=== PATIENT | male | born 1960 | race Caucasian/White ===

== ENCOUNTER 2019-01-27 10:37 | Emergency (ER) | payer OTHER ==
[~2019-01-27] VITALS: Ht 193 cm; Wt 68.0 kg
[2019-01-27 13:26] LABS: Basophils # (auto) 0.1 uL; Basophils % (auto) 0.8 % (0.0-2.0); Eosinophils # (auto) 0.2 uL; Eosinophils % (auto) 2.2 % (0.0-7.0); Hematocrit 48.7 % (41.0-53.0); Hemoglobin 16.6 g/dL (13.5-17.5); Lymphocytes % (auto) 23.6 % (10.0-50.0); Mean Corpuscular Hemoglobin 30.5 pg (28.0-32.0); Mean Corpuscular Hgb Conc. 34.1 g/dL (32.0-36.0); Mean Corpuscular Volume 89.4 fL (80.0-100.0); Monocytes # (auto) 0.4 uL; Monocytes % (auto) 4.6 % (0.0-12.0); Neutrophils # (auto) 5.8 uL; Neutrophils % (auto) 68.8 % (37.0-80.0); Nucleated Red Blood Cells % 0.1 %; Platelet Count (auto) 213 10^3/uL (140-450); Red Blood Cells 5.44 10^6/uL (4.5-5.90); Red Cell Distribution Width 15.4 % (11.8-14.3); White Blood Cell 8.4 10^3/uL (4.4-10.8)
[2019-01-27 13:44] LABS: Albumin 3.4 g/dL (3.4-5.0); Calcium 9.1 mg/dL (8.5-10.1); Potassium 3.7 mmol/L (3.5-5.1)
[2019-01-27 13:47] LABS: BUN/Creatinine Ratio 13.8; Bilirubin, Total 0.4 mg/dL (0.2-1.0); Total Protein 7.9 g/dL (6.4-8.2)
[2019-01-27 13:54] VITALS: BP 132/85
[2019-01-27] MEDS ORDERED: HYDROmorphone HCL 2 MG TAB PO ONE (14:00)
== END 2019-01-27 14:33 | disposition home or self-care (01) ==
LOC: ER 10:37
DX: G89.4 Chronic pain syndrome (principal); E11.9 Type 2 diabetes mellitus without complications; I10 Essential (primary) hypertension; F17.210 Nicotine dependence, cigarettes, uncomplicated; Z88.8 Allergy status to other drugs, medicaments and biological substances; Z88.6 Allergy status to analgesic agent; Z89.612 Acquired absence of left leg above knee; Z89.511 Acquired absence of right leg below knee; Z86.718 Personal history of other venous thrombosis and embolism; Z85.3 Personal history of malignant neoplasm of breast
CPT/HCPCS: 36415; 80053; 85025

== ENCOUNTER 2019-01-28 07:44 | Emergency (ER) | payer OTHER ==
[~2019-01-28] VITALS: Ht 193 cm; Wt 70.3 kg
[2019-01-28] MEDS ORDERED: HYDROcodone-ACET 5/325MG TAB PO ONE (08:45)
[2019-01-28] MEDS ORDERED: ONDANSETRON HCL 4 MG/2 ML VIAL IM ONE (09:00)
[2019-01-28] MEDS ORDERED: HYDROmorphone HCL 2 MG/ML VL IM ONE (09:00)
[2019-01-28 09:44] VITALS: BP 150/90
== END 2019-01-28 10:20 | disposition home or self-care (01) ==
LOC: ER 07:46
DX: G89.4 Chronic pain syndrome (principal); M79.652 Pain in left thigh; E11.9 Type 2 diabetes mellitus without complications; I10 Essential (primary) hypertension; F17.210 Nicotine dependence, cigarettes, uncomplicated; Z88.8 Allergy status to other drugs, medicaments and biological substances
CPT/HCPCS: 96372; 99283; J1170; J2405

== ENCOUNTER 2019-01-31 11:26 | Emergency (ER) | payer OTHER ==
[~2019-01-31] VITALS: Ht 170.2 cm; Wt 70.3 kg
[2019-01-31 11:37] VITALS: BP 146/93
[2019-01-31] MEDS ORDERED: MORPHINE SULFATE 10 MG/ML INJ 1ML SDV IM ONE (13:00)
[2019-01-31] MEDS ORDERED: PROMETHAZINE HCL 25 MG/ML 1ML IM ONE (13:00)
== END 2019-01-31 13:29 | disposition home or self-care (01) ==
LOC: ER 11:26
DX: S80.02XA Contusion of left knee, initial encounter (principal); G89.4 Chronic pain syndrome; E11.9 Type 2 diabetes mellitus without complications; I10 Essential (primary) hypertension; F17.210 Nicotine dependence, cigarettes, uncomplicated; W18.39XA Other fall on same level, initial encounter; Y93.89 Activity, other specified; Y92.89 Other specified places as the place of occurrence of the external cause; Y99.8 Other external cause status
CPT/HCPCS: 96372; 99283; J2270; J2550

== ENCOUNTER 2019-02-03 03:26 | Emergency (ER) | payer OTHER ==
[~2019-02-03] VITALS: Ht 193 cm; Wt 72.6 kg
[2019-02-03] MEDS ORDERED: HYDROmorphone HCL 2 MG/ML VL IV ONE (07:00)
[2019-02-03] MEDS ORDERED: diphenhdrAMINE HCL 50 MG/1 ML VL IV ONE (07:00)
[2019-02-03] MEDS ORDERED: cefTRIAXone 1GM/50ML D5W 50 ML IV ONE (07:00)
[2019-02-03 07:19] VITALS: BP 130/80
== END 2019-02-03 08:09 | disposition home or self-care (01) ==
LOC: ER 03:26 → MERGE 03:26 → ER 08:09
DX: G89.29 Other chronic pain (principal); M79.605 Pain in left leg; E11.9 Type 2 diabetes mellitus without complications; I10 Essential (primary) hypertension; F17.210 Nicotine dependence, cigarettes, uncomplicated; Z88.8 Allergy status to other drugs, medicaments and biological substances
CPT/HCPCS: 73560; 96365; 96375; 99283; J0696; J1170

== ENCOUNTER 2019-02-25 14:18 | Emergency (ER) | payer OTHER ==
[~2019-02-25] VITALS: Ht 162.6 cm; Wt 72.6 kg
[2019-02-25 14:35] VITALS: BP 155/94
== END 2019-02-25 16:50 | disposition left against medical advice (07) ==
LOC: ER 14:18
DX: M25.562 Pain in left knee (principal); Z53.21 Procedure and treatment not carried out due to patient leaving prior to being seen by health care provider

== ENCOUNTER 2019-03-04 07:41 | Emergency (ER) | payer OTHER ==
[~2019-03-04] VITALS: Ht 195.6 cm; Wt 74.8 kg
[2019-03-04] MEDS ORDERED: HYDROcodone-ACET 5/325MG TAB PO ONE (08:15)
[2019-03-04] MEDS ORDERED: KETOROLAC TROMETH 60MG/2ML VIAL IM ONE (08:15)
[2019-03-04] MEDS ORDERED: HYDROmorphone HCL 2 MG/ML VL IM ONE (08:45)
[2019-03-04 09:41] VITALS: BP 139/90
== END 2019-03-04 10:04 | disposition home or self-care (01) ==
LOC: ER 07:44
DX: M25.562 Pain in left knee (principal); E11.9 Type 2 diabetes mellitus without complications; I10 Essential (primary) hypertension; F17.210 Nicotine dependence, cigarettes, uncomplicated; Z88.8 Allergy status to other drugs, medicaments and biological substances; Z91.030 Bee allergy status
CPT/HCPCS: 96372; 99283; J1170

== ENCOUNTER 2019-04-20 15:35 | Emergency (ER) | payer OTHER ==
[~2019-04-20] VITALS: Ht 193 cm; Wt 79.4 kg
[2019-04-20 15:58] VITALS: BP 128/90
== END 2019-04-20 17:13 | disposition left against medical advice (07) ==
LOC: EDBD → ER 15:35
DX: M79.606 Pain in leg, unspecified (principal); Z53.21 Procedure and treatment not carried out due to patient leaving prior to being seen by health care provider

== ENCOUNTER 2019-04-21 13:00 | Emergency (ER) | payer OTHER ==
[~2019-04-21] VITALS: Ht 195.6 cm; Wt 79.4 kg
[2019-04-21 13:59] VITALS: BP 129/89
[2019-04-21] MEDS ORDERED: HYDROmorphone HCL 2 MG/ML VL IM ONE (16:45)
[2019-04-21] MEDS ORDERED: ONDANSETRON HCL 4 MG/2 ML VIAL IM ONE (16:45)
== END 2019-04-21 17:22 | disposition left against medical advice (07) ==
LOC: EDBD → ER 13:11
DX: S88.912A Complete traumatic amputation of left lower leg, level unspecified, initial encounter (principal); S88.911A Complete traumatic amputation of right lower leg, level unspecified, initial encounter; S86.912A Strain of unspecified muscle(s) and tendon(s) at lower leg level, left leg, initial encounter; S86.911A Strain of unspecified muscle(s) and tendon(s) at lower leg level, right leg, initial encounter; G89.4 Chronic pain syndrome; E11.9 Type 2 diabetes mellitus without complications; I10 Essential (primary) hypertension; F17.210 Nicotine dependence, cigarettes, uncomplicated; Z90.49 Acquired absence of other specified parts of digestive tract; X58.XXXA Exposure to other specified factors, initial encounter; Y93.89 Activity, other specified; Y92.89 Other specified places as the place of occurrence of the external cause; Y99.8 Other external cause status

== ENCOUNTER 2019-04-22 11:34 | Emergency (ER) | payer OTHER ==
[~2019-04-22] VITALS: Ht 195.6 cm; Wt 79.4 kg
[2019-04-22] MEDS ORDERED: ONDANSETRON HCL 4 MG/2 ML VIAL IM ONE (12:45)
[2019-04-22] MEDS ORDERED: HYDROmorphone HCL 2 MG/ML VL IM ONE (12:45)
[2019-04-22 14:40] LABS: Basophils # (auto) 0.1 uL; Basophils % (auto) 0.8 % (0.0-2.0); Eosinophils # (auto) 0.2 uL; Eosinophils % (auto) 1.8 % (0.0-7.0); Hematocrit 41.5 % (41.0-53.0); Hemoglobin 14.1 g/dL (13.5-17.5); Lymphocytes # (auto) 2.4 uL; Lymphocytes % (auto) 28.5 % (10.0-50.0); Mean Corpuscular Hemoglobin 30.9 pg (28.0-32.0); Mean Corpuscular Hgb Conc. 33.9 g/dL (32.0-36.0); Mean Corpuscular Volume 91.3 fL (80.0-100.0); Monocytes # (auto) 0.4 uL; Monocytes % (auto) 4.9 % (0.0-12.0); Neutrophils # (auto) 5.4 uL; Nucleated Red Blood Cells % 0.1 %; Platelet Count (auto) 241 10^3/uL (140-450); Red Blood Cells 4.55 10^6/uL (4.5-5.90); Red Cell Distribution Width 14.9 % (11.8-14.3); White Blood Cell 8.5 10^3/uL (4.4-10.8)
[2019-04-22 14:52] LABS: Albumin 3.1 g/dL (3.4-5.0); BUN/Creatinine Ratio 10.4; Calcium 8.6 mg/dL (8.5-10.1); Potassium 3.8 mmol/L (3.5-5.1)
[2019-04-22 14:54] LABS: Bilirubin, Total 0.4 mg/dL (0.2-1.0); Total Protein 7.8 g/dL (6.4-8.2)
[2019-04-22 15:53] VITALS: BP 115/80
== END 2019-04-22 15:56 | disposition home or self-care (01) ==
LOC: ER 11:34
DX: T14.8XXA Other injury of unspecified body region, initial encounter (principal); G89.4 Chronic pain syndrome; F17.210 Nicotine dependence, cigarettes, uncomplicated; X58.XXXA Exposure to other specified factors, initial encounter; Y93.89 Activity, other specified; Y92.89 Other specified places as the place of occurrence of the external cause; Y99.8 Other external cause status; I48.91 Unspecified atrial fibrillation; E11.9 Type 2 diabetes mellitus without complications; I10 Essential (primary) hypertension; I25.2 Old myocardial infarction; Z85.9 Personal history of malignant neoplasm, unspecified
CPT/HCPCS: 36415; 80053; 85025; 96372; 99283; J1170; J2405

== ENCOUNTER 2019-04-24 03:25 | Emergency (ER) | payer OTHER ==
[~2019-04-24] VITALS: Ht 195.6 cm; Wt 79.4 kg
[2019-04-24 06:42] VITALS: BP 128/89
[2019-04-24] MEDS ORDERED: PROMETHAZINE HCL 25 MG/ML 1ML IM ONE (06:45)
[2019-04-24] MEDS ORDERED: MEPERIDINE HCL (50 MG/ML) 1 ML VIAL IM ONE (06:45)
== END 2019-04-24 07:10 | disposition home or self-care (01) ==
LOC: ER 03:27
DX: G89.4 Chronic pain syndrome (principal); G89.18 Other acute postprocedural pain; F17.210 Nicotine dependence, cigarettes, uncomplicated; E11.9 Type 2 diabetes mellitus without complications; I10 Essential (primary) hypertension; Z76.0 Encounter for issue of repeat prescription; Z90.49 Acquired absence of other specified parts of digestive tract; Z88.8 Allergy status to other drugs, medicaments and biological substances
CPT/HCPCS: 96372; 99283; J2175; J2550

== ENCOUNTER 2019-04-25 23:01 | Emergency (ER) | payer OTHER ==
[~2019-04-25] VITALS: Ht 167.6 cm; Wt 77.1 kg
[2019-04-26] MEDS ORDERED: hydrOXYzine HCL 25 MG/ML VL IM ONE (06:30)
[2019-04-26] MEDS ORDERED: NALBUPHINE HCL 10 MG/1ml INJECTION IM ONE (06:30)
[2019-04-26 06:36] VITALS: BP 113/76
[2019-04-26] MEDS ORDERED: diphenhdrAMINE HCL 50 MG/1 ML VL IM ONE (06:45)
== END 2019-04-26 07:09 | disposition home or self-care (01) ==
LOC: ER 23:03
DX: G89.4 Chronic pain syndrome (principal); E11.9 Type 2 diabetes mellitus without complications; I10 Essential (primary) hypertension; F17.210 Nicotine dependence, cigarettes, uncomplicated; Z88.6 Allergy status to analgesic agent; Z88.8 Allergy status to other drugs, medicaments and biological substances; Z89.612 Acquired absence of left leg above knee; Z90.49 Acquired absence of other specified parts of digestive tract; Z89.611 Acquired absence of right leg above knee
CPT/HCPCS: 96372; 99283; J1200; J2300

== ENCOUNTER 2019-05-01 12:30 | Emergency (ER) | payer OTHER ==
[~2019-05-01] VITALS: Ht 193 cm; Wt 81.6 kg
[2019-05-01 12:51] VITALS: BP 115/76
[2019-05-01] MEDS ORDERED: PROMETHAZINE HCL 25 MG/ML 1ML IM ONE (14:30)
[2019-05-01] MEDS ORDERED: MEPERIDINE HCL (50 MG/ML) 1 ML VIAL IM ONE (14:30)
== END 2019-05-01 16:33 | disposition home or self-care (01) ==
LOC: ER 12:33
DX: G89.4 Chronic pain syndrome (principal); M25.562 Pain in left knee; E11.9 Type 2 diabetes mellitus without complications; I10 Essential (primary) hypertension; F17.210 Nicotine dependence, cigarettes, uncomplicated; Z90.49 Acquired absence of other specified parts of digestive tract
CPT/HCPCS: 96372; 99283; J2175; J2550

== ENCOUNTER 2019-06-17 05:16 | Emergency (ER) | payer OTHER ==
[~2019-06-17] VITALS: Ht 121.9 cm; Wt 79.4 kg
[2019-06-17 06:12] LABS: Basophils # (auto) 0 uL; Basophils % (auto) 0.4 % (0.0-2.0); Eosinophils # (auto) 0.1 uL; Eosinophils % (auto) 1.2 % (0.0-7.0); Hematocrit 44.1 % (41.0-53.0); Lymphocytes # (auto) 1.2 uL; Lymphocytes % (auto) 10.9 % (10.0-50.0); Mean Corpuscular Hemoglobin 30.3 pg (28.0-32.0); Mean Corpuscular Volume 89.1 fL (80.0-100.0); Monocytes # (auto) 0.7 uL; Monocytes % (auto) 6.1 % (0.0-12.0); Neutrophils # (auto) 9.1 uL; Neutrophils % (auto) 81.4 % (37.0-80.0); Nucleated Red Blood Cells % 0.1 %; Platelet Count (auto) 212 10^3/uL (140-450); Red Blood Cells 4.95 10^6/uL (4.5-5.90); White Blood Cell 11.1 10^3/uL (4.4-10.8)
[2019-06-17 06:24] LABS: Albumin 3.1 g/dL (3.4-5.0); Calcium 9.7 mg/dL (8.5-10.1); Potassium 4.2 mmol/L (3.5-5.1)
[2019-06-17 06:29] LABS: Bilirubin, Total 0.6 mg/dL (0.2-1.0); INR 1.04 (0.9-1.15); Partial Thromboplastin Time 22.1 sec (23.64-32.05); Total Protein 8.6 g/dL (6.4-8.2)
[2019-06-17] MEDS ORDERED: SODIUM CHLORIDE 0.9% 1,000 ML IV ONE (07:11)
[2019-06-17] MEDS ORDERED: HYDROmorphone HCL 2 MG/ML VL IV ONE (07:15)
[2019-06-17] MEDS ORDERED: ONDANSETRON HCL 4 MG/2 ML VIAL IV ONE (07:15)
[2019-06-17] MEDS ORDERED: CLINDAMYCIN 900MG IV 50 ML IV ONE (07:15)
[2019-06-17] MEDS ORDERED: cefTRIAXone 1GM/50ML D5W 50 ML IV ONE (07:15)
[2019-06-17] MEDS ORDERED: CLINDAMYCIN 600 MG/4 ML VL IM ONE (08:00)
[2019-06-17] MEDS ORDERED: cefTRIAXone SOD 1,000 MG VL IM ONE (08:00)
[2019-06-17] MEDS ORDERED: ONDANSETRON HCL 4 MG/2 ML VIAL IM ONE (08:00)
[2019-06-17] MEDS ORDERED: HYDROmorphone HCL 2 MG/ML VL IM ONE (08:00)
[2019-06-17 08:18] VITALS: BP 92/68
== END 2019-06-17 09:18 | disposition home or self-care (01) ==
LOC: ER 05:18
DX: L03.113 Cellulitis of right upper limb (principal); G89.4 Chronic pain syndrome; E11.9 Type 2 diabetes mellitus without complications; I10 Essential (primary) hypertension; I25.2 Old myocardial infarction; F17.210 Nicotine dependence, cigarettes, uncomplicated; Z90.49 Acquired absence of other specified parts of digestive tract; Z98.61 Coronary angioplasty status; Z88.6 Allergy status to analgesic agent; Z88.8 Allergy status to other drugs, medicaments and biological substances
CPT/HCPCS: 36415; 80053; 85025; 85610; 85730; 87040; 96372; 99283; J0696; J1170; J2405

== ENCOUNTER 2019-07-28 12:12 | Emergency (ER) | payer MEDICARE, OTHER ==
[~2019-07-28] VITALS: Ht 193 cm; Wt 79.4 kg
[2019-07-28 16:08] VITALS: BP 136/94
[2019-07-28] MEDS ORDERED: HYDROcodone-ACET 10/325MG TAB PO ONE (16:45)
== END 2019-07-28 16:44 | disposition left against medical advice (07) ==
LOC: ER 12:12
DX: L03.113 Cellulitis of right upper limb (principal); E11.9 Type 2 diabetes mellitus without complications; E78.5 Hyperlipidemia, unspecified; I25.2 Old myocardial infarction; G89.29 Other chronic pain; I10 Essential (primary) hypertension; F17.210 Nicotine dependence, cigarettes, uncomplicated; Z90.49 Acquired absence of other specified parts of digestive tract; Z98.61 Coronary angioplasty status

== ENCOUNTER 2019-09-15 10:03 | Emergency (ER) | payer OTHER ==
[~2019-09-15] VITALS: Ht 193 cm; Wt 81.6 kg
[2019-09-15 11:22] VITALS: BP 147/92
== END 2019-09-15 12:19 | disposition home or self-care (01) ==
LOC: ER 10:05
DX: M54.5 Low back pain (principal); Z89.511 Acquired absence of right leg below knee; Z89.612 Acquired absence of left leg above knee; F17.210 Nicotine dependence, cigarettes, uncomplicated; I25.10 Atherosclerotic heart disease of native coronary artery without angina pectoris; E11.9 Type 2 diabetes mellitus without complications; I10 Essential (primary) hypertension; I25.2 Old myocardial infarction

== ENCOUNTER 2019-09-21 14:31 | Inpatient (IN) | payer OTHER, SELFPAY ==
[~2019-09-21] VITALS: Ht 172.7 cm; Wt 71.1 kg
[2019-09-21] MEDS: NOREPINEPHRINE 8 MG/250ML KIT 250 ML IV ONE ×2 (15:03→15:40)
[2019-09-21] MEDS: MIDAZOLAM DRIP 50 mg/50mL 50 ML IV ONE (15:09)
[2019-09-21] MEDS ORDERED: LORazepam 2MG/ML-1ML VIAL IM ONE (15:30)
[2019-09-21] MEDS ORDERED: SODIUM CHLORIDE 0.9% 2,000 ML IV ONE (15:45)
[2019-09-21] MEDS: NOREPINEPHRINE 8 MG/250ML KIT 250 ML IV SCH ×2 (16:00→16:08)
[2019-09-21] MEDS: MIDAZOLAM DRIP 50 mg/50mL 50 ML IV SCH (16:01)
[2019-09-21 16:09] LABS: Basophils # (auto) 0.1 10 ^3/uL (0-0.2); Basophils % (auto) 0.4 % (0.0-2.0); Eosinophils # (auto) 0.2 10 ^3/uL (0-0.8); Eosinophils % (auto) 0.8 % (0.0-7.0); Hematocrit 48.4 % (41.0-53.0); Hemoglobin 15.3 g/dL (13.5-17.5); Lymphocytes # (auto) 2.3 10 ^3/uL (0.4-5.4); Lymphocytes % (auto) 10.3 % (10.0-50.0); Mean Corpuscular Hemoglobin 30.3 pg (28.0-32.0); Mean Corpuscular Hgb Conc. 31.6 g/dL (32.0-36.0); Mean Corpuscular Volume 95.8 fL (80.0-100.0); Monocytes # (auto) 1.1 10 ^3/uL (0-1.3); Monocytes % (auto) 4.7 % (0.0-12.0); Neutrophils # (auto) 18.7 10 ^3/uL (1.6-8.6); Neutrophils % (auto) 83.8 % (37.0-80.0); Platelet Count (auto) 269 10^3/uL (140-450); Red Blood Cells 5.06 10^6/uL (4.5-5.90); Red Cell Distribution Width 17.9 % (11.8-14.3); White Blood Cell 22.3 10^3/uL (4.4-10.8)
[2019-09-21 16:17] LABS: Alanine Aminotransferase 36 U/L (16-61); Albumin 3.1 g/dL (3.4-5.0); Anion Gap 18 (5-15); Aspartate Aminotransferase 52 U/L (15-37); BUN/Creatinine Ratio 8.5; Blood Alcohol < 3.0 mg/dL (0-5); Blood Urea Nitrogen 14 mg/dL (7-18); Calcium 8.4 mg/dL (8.5-10.1); Carbon Dioxide 15 mmol/L (21-32); Chloride 103 mmol/L (98-107); GFR African American 55 mL/min; GFR Non-African American 45 mL/min; Magnesium 3.1 mg/dL (1.6-2.6); Potassium 3.9 mmol/L (3.5-5.1); Sodium 136 mmol/L (136-145)
[2019-09-21 16:22] LABS: Alkaline Phosphatase 177 U/L (45-117); Bilirubin, Total 0.1 mg/dL (0.2-1.0); Lactic Acid w/Reflex 9.9 mmol/L (0.4-2.0); Total Protein 7.8 g/dL (6.4-8.2)
[2019-09-21] MEDS ORDERED: AZITHROMYCIN 500MG/ 250ML 250 ML IV ONE (16:45)
[2019-09-21] MEDS ORDERED: VANCOMYCIN 1GM/250ML 250 ML IV ONE (16:45)
[2019-09-21 16:47] LABS: Glucose 442 mg/dL (74-106)
[2019-09-21] MEDS ORDERED: DEXTROSE (50%) 50ML SYRG IV PRN ×2 (17:00→19:00)
[2019-09-21] MEDS ORDERED: INSULIN LANTUS (GLARGINE) 1 /0.01ml (100units/ml) SC ONE ×2 (17:00→19:15)
[2019-09-21] MEDS ORDERED: InsuLIN REG 1unit/0.01ml Soln (100units/ml) IV ONE (17:00)
[2019-09-21 17:03] LABS: Alcohol, Urine < 3.0 mg/dL (0-5); Amphetamine Screen, Urine NEGATIVE (NEGATIVE); Barbiturate Scree,Urine NEGATIVE (NEGATIVE); Benzodiazephine Screen, Urine POSITIVE (NEGATIVE); Cannabinoid Screen, Urine NEGATIVE (NEGATIVE); Cocaine Screen, Urine NEGATIVE (NEGATIVE); Opiate Scree,Urine NEGATIVE (NEGATIVE); Phencyclidine Screen, Urine NEGATIVE (NEGATIVE)
[2019-09-21 17:07] LABS: Urine Bacteria FEW /hpf (None Seen); Urine Blood 2+ /uL (Negative); Urine Hyaline Cast MOD /lpf (0 - 2); Urine Specific Gravity 1.022 (1.001-1.035); Urine WBC 17 /hpf (0 - 3)
[2019-09-21] MEDS: SODIUM CHLORIDE 0.9% 1,000 ML IV SCH ×3 (17:07→22:51)
[2019-09-21 17:45] VITALS: BP 132/85
[2019-09-21] MEDS: InsuLIN R (HUMAN) 100 UNITS in SODIUM CHL 0.9% 99 ML IV SCH ×2 (17:52→18:29)
[2019-09-21] MEDS ORDERED: ACCU-CHEK COMFORT CURVE STRIP VI SCH ×3 (18:00→20:00)
[2019-09-21] MEDS ORDERED: FUROSEMIDE INJECTION 10 ML ONE (18:14)
[2019-09-21] MEDS ORDERED: ACETAMINOPHEN 650 MG RECT SUPP PR ONE (18:15)
[2019-09-21] MEDS ORDERED: FUROSEMIDE 40 MG/4 ML VIAL IV ONE (18:15)
[2019-09-21] MEDS: LINEZOLID 600MG/300ML 300 ML IV SCH ×2 (19:00→22:16)
[2019-09-21] MEDS ORDERED: LACTULOSE 20Gm/30ML SOLN PO PRN (19:00)
[2019-09-21] MEDS ORDERED: NITROGLYCERIN 0.4 MG SL TAB SL PRN (19:00)
[2019-09-21] MEDS ORDERED: PIPERACILLIN-TAZOB 3.375GM 100 ML IV ONE (19:00)
[2019-09-21] MEDS ORDERED: MORPHINE SULF INJ 2 MG/ML SYRINGE 1ML IV PRN (19:00)
[2019-09-21] MEDS ORDERED: ALBUTEROL SULF 2.5 MG/0.5ML(0.5%) NEB SOLN NEB PRN (19:00)
[2019-09-21 19:11] VITALS: BP 136/85
[2019-09-21] MEDS ORDERED: InsuLIN R (HUMAN) 100 UNITS in SODIUM CHL 0.9% 99 ML IV SCH (19:11)
[2019-09-21 19:50] VITALS: BP 125/82
[2019-09-21] MEDS ORDERED: InsuLIN REG 1unit/0.01ml Soln (100units/ml) SC SCH (20:00)
[2019-09-21 20:29] LABS: BUN/Creatinine Ratio 11.9; Calcium 7.5 mg/dL (8.5-10.1); Potassium 3.5 mmol/L (3.5-5.1)
[2019-09-21] MEDS ORDERED: SODIUM CHLORIDE 0.9% 1,000 ML IV SCH (20:51)
[2019-09-21] MEDS: InsuLIN REG 1unit/0.01ml Soln (100units/ml) SC SCH (22:23)
[2019-09-21 22:32] VITALS: BP 128/86
[2019-09-21 23:30] LABS: BUN/Creatinine Ratio 11.8; Calcium 7.7 mg/dL (8.5-10.1); Potassium 3.7 mmol/L (3.5-5.1)
[2019-09-21] MEDS ORDERED: ENOXAPARIN SOD 100 MG/1 ML SYRINGE SC ONE (23:30)
[2019-09-21] MEDS: PIPERACILLIN-TAZOB 3.375GM 100 ML IV SCH (23:52)
[2019-09-22] VITALS (69 sets, daily range): BP systolic 76–137; BP diastolic 45–93
[2019-09-22] MEDS: SODIUM CHLORIDE 0.9% 1,000 ML IV SCH ×5 (01:11→18:28)
[2019-09-22 01:25] LABS: BUN/Creatinine Ratio 11.7; Potassium 3.9 mmol/L (3.5-5.1)
[2019-09-22] MEDS: InsuLIN REG 1unit/0.01ml Soln (100units/ml) SC SCH ×5 (02:03→23:37)
[2019-09-22] MEDS: ACCU-CHEK COMFORT CURVE STRIP VI SCH ×5 (04:00→23:37)
[2019-09-22] MEDS ORDERED: ALBUTEROL SULF 2.5 MG/0.5ML(0.5%) NEB SOLN NEB SCH ×3 (06:00→12:00)
[2019-09-22] MEDS: PIPERACILLIN-TAZOB 3.375GM 100 ML IV SCH ×3 (06:00→16:50)
[2019-09-22] MEDS ORDERED: IPRATROPIUM BROM 0.5 MG/2.5ML INH SOL NEB SCH ×3 (06:00→12:00)
[2019-09-22 06:59] LABS: Basophils # (auto) 0 10 ^3/uL (0-0.2); Basophils % (auto) 0.2 % (0.0-2.0); Eosinophils # (auto) 0 10 ^3/uL (0-0.8); Hematocrit 40.6 % (41.0-53.0); Hemoglobin 13.4 g/dL (13.5-17.5); Lymphocytes # (auto) 0.9 10 ^3/uL (0.4-5.4); Lymphocytes % (auto) 8.1 % (10.0-50.0); Mean Corpuscular Hemoglobin 30.6 pg (28.0-32.0); Mean Corpuscular Hgb Conc. 32.9 g/dL (32.0-36.0); Mean Corpuscular Volume 93.1 fL (80.0-100.0); Monocytes # (auto) 0.5 10 ^3/uL (0-1.3); Monocytes % (auto) 4.5 % (0.0-12.0); Neutrophils # (auto) 9.7 10 ^3/uL (1.6-8.6); Neutrophils % (auto) 87.2 % (37.0-80.0); Platelet Count (auto) 109 10^3/uL (140-450); Red Blood Cells 4.37 10^6/uL (4.5-5.90); Red Cell Distribution Width 16.4 % (11.8-14.3); White Blood Cell 11.1 10^3/uL (4.4-10.8)
[2019-09-22 07:29] LABS: Albumin 2.7 g/dL (3.4-5.0); Potassium 3.8 mmol/L (3.5-5.1)
[2019-09-22 07:30] LABS: Potassium 3.8 mmol/L (3.5-5.1)
[2019-09-22 07:32] LABS: BUN/Creatinine Ratio 13.1
[2019-09-22 07:34] LABS: BUN/Creatinine Ratio 12.2; Bilirubin, Total 0.5 mg/dL (0.2-1.0); Total Protein 6.4 g/dL (6.4-8.2)
[2019-09-22] MEDS ORDERED: ENOXAPARIN SOD 40 MG/0.4 ML SYRINGE SC SCH (10:00)
[2019-09-22] MEDS: INSULIN LANTUS (GLARGINE) 1 /0.01ml (100units/ml) SC SCH (10:00)
[2019-09-22] MEDS: ENOXAPARIN SOD 100 MG/1 ML SYRINGE SC SCH ×2 (10:49→22:00)
[2019-09-22] MEDS: LINEZOLID 600MG/300ML 300 ML IV SCH ×2 (10:50→22:00)
[2019-09-22] MEDS: AZITHROMYCIN 500MG/ 250ML 250 ML IV SCH (10:50)
[2019-09-22 11:30] LABS: Potassium 3.8 mmol/L (3.5-5.1)
[2019-09-22] MEDS ORDERED: InsuLIN REG 1unit/0.01ml Soln (100units/ml) SC SCH ×3 (12:00→17:00)
[2019-09-22] MEDS ORDERED: ACCU-CHEK COMFORT CURVE STRIP VI SCH ×3 (12:00→17:00)
[2019-09-22] MEDS: fentaNYL Drip 2500mCg/250mlNS 250 ML IV SCH (12:31)
[2019-09-22] MEDS: ALBUTEROL SULF 2.5 MG/0.5ML(0.5%) NEB SOLN NEB SCH ×2 (13:54→22:23)
[2019-09-22] MEDS: IPRATROPIUM BROM 0.5 MG/2.5ML INH SOL NEB SCH ×2 (13:54→22:23)
[2019-09-22] MEDS: NOREPINEPHRINE 8 MG/250ML KIT 250 ML IV SCH (14:59)
[2019-09-22] MEDS: MIDAZOLAM DRIP 50 mg/50mL 50 ML IV SCH (16:30)
[2019-09-22 17:29] LABS: Basophils # (auto) 0 10 ^3/uL (0-0.2); Basophils % (auto) 0.2 % (0.0-2.0); Eosinophils # (auto) 0 10 ^3/uL (0-0.8); Hematocrit 37.9 % (41.0-53.0); Hemoglobin 12.4 g/dL (13.5-17.5); Lymphocytes # (auto) 1.3 10 ^3/uL (0.4-5.4); Lymphocytes % (auto) 9.5 % (10.0-50.0); Mean Corpuscular Hemoglobin 30.6 pg (28.0-32.0); Mean Corpuscular Hgb Conc. 32.8 g/dL (32.0-36.0); Mean Corpuscular Volume 93.4 fL (80.0-100.0); Monocytes # (auto) 0.8 10 ^3/uL (0-1.3); Monocytes % (auto) 5.9 % (0.0-12.0); Neutrophils # (auto) 11.1 10 ^3/uL (1.6-8.6); Neutrophils % (auto) 84.4 % (37.0-80.0); Platelet Count (auto) 117 10^3/uL (140-450); Red Blood Cells 4.06 10^6/uL (4.5-5.90); Red Cell Distribution Width 16.7 % (11.8-14.3); White Blood Cell 13.2 10^3/uL (4.4-10.8)
[2019-09-23] VITALS (100 sets, daily range): BP systolic 82–131; BP diastolic 54–88
[2019-09-23] MEDS: SODIUM BICARBONATE 50ML VIAL 150 ML in D5W/SOD CHL 0.45% 1,000 ML IV SCH ×2 (01:15→09:21)
[2019-09-23] MEDS: PIPERACILLIN-TAZOB 3.375GM 100 ML IV SCH ×6 (01:45→23:30)
[2019-09-23] MEDS: InsuLIN REG 1unit/0.01ml Soln (100units/ml) SC SCH ×3 (06:00→18:00)
[2019-09-23] MEDS: ACCU-CHEK COMFORT CURVE STRIP VI SCH ×4 (06:05→20:11)
[2019-09-23] MEDS: ALBUTEROL SULF 2.5 MG/0.5ML(0.5%) NEB SOLN NEB SCH ×3 (06:47→22:29)
[2019-09-23] MEDS: IPRATROPIUM BROM 0.5 MG/2.5ML INH SOL NEB SCH ×3 (06:47→22:29)
[2019-09-23] MEDS: LINEZOLID 600MG/300ML 300 ML IV SCH (09:21)
[2019-09-23] MEDS: AZITHROMYCIN 500MG/ 250ML 250 ML IV SCH (09:22)
[2019-09-23] MEDS: ENOXAPARIN SOD 100 MG/1 ML SYRINGE SC SCH ×2 (09:22→22:14)
[2019-09-23] MEDS: MIDAZOLAM DRIP 50 mg/50mL 50 ML IV SCH (09:30)
[2019-09-23] MEDS: INSULIN LANTUS (GLARGINE) 1 /0.01ml (100units/ml) SC SCH (10:17)
[2019-09-23 10:22] LABS: Basophils # (auto) 0 10 ^3/uL (0-0.2); Basophils % (auto) 0.3 % (0.0-2.0); Eosinophils # (auto) 0.1 10 ^3/uL (0-0.8); Eosinophils % (auto) 0.6 % (0.0-7.0); Hemoglobin 12.1 g/dL (13.5-17.5); Lymphocytes % (auto) 11.1 % (10.0-50.0); Mean Corpuscular Hemoglobin 31.5 pg (28.0-32.0); Mean Corpuscular Hgb Conc. 33.7 g/dL (32.0-36.0); Mean Corpuscular Volume 93.5 fL (80.0-100.0); Monocytes # (auto) 0.5 10 ^3/uL (0-1.3); Monocytes % (auto) 5.8 % (0.0-12.0); Neutrophils # (auto) 7.5 10 ^3/uL (1.6-8.6); Neutrophils % (auto) 82.2 % (37.0-80.0); Platelet Count (auto) 92 10^3/uL (140-450); Red Blood Cells 3.85 10^6/uL (4.5-5.90); Red Cell Distribution Width 16.7 % (11.8-14.3); White Blood Cell 9.2 10^3/uL (4.4-10.8)
[2019-09-23 10:41] LABS: Albumin 2.3 g/dL (3.4-5.0); Calcium 7.7 mg/dL (8.5-10.1); Potassium 3.5 mmol/L (3.5-5.1)
[2019-09-23 10:44] LABS: BUN/Creatinine Ratio 12.6; Bilirubin, Total 0.5 mg/dL (0.2-1.0); Total Protein 5.7 g/dL (6.4-8.2)
[2019-09-23] MEDS: fentaNYL Drip 2500mCg/250mlNS 250 ML IV SCH (11:47)
[2019-09-23] MEDS ORDERED: D5W/LACTATED RINGERS 1,000 ML IV SCH (12:15)
[2019-09-23] MEDS: D5W/LACTATED RINGERS 1,000 ML IV SCH ×3 (12:15→20:11)
[2019-09-23] MEDS: NOREPINEPHRINE 8 MG/250ML KIT 250 ML IV SCH (14:30)
[2019-09-24] VITALS (90 sets, daily range): BP systolic 87–145; BP diastolic 44–94
[2019-09-24] MEDS: NOREPINEPHRINE 8 MG/250ML KIT 250 ML IV SCH (00:15)
[2019-09-24] MEDS: MIDAZOLAM DRIP 50 mg/50mL 50 ML IV SCH ×6 (00:15→22:30)
[2019-09-24] MEDS: fentaNYL Drip 2500mCg/250mlNS 250 ML IV SCH ×2 (00:15→16:36)
[2019-09-24] MEDS: D5W/LACTATED RINGERS 1,000 ML IV SCH ×3 (01:35→14:05)
[2019-09-24] MEDS: InsuLIN REG 1unit/0.01ml Soln (100units/ml) SC SCH ×4 (05:50→17:49)
[2019-09-24] MEDS: PIPERACILLIN-TAZOB 3.375GM 100 ML IV SCH ×3 (05:50→17:43)
[2019-09-24] MEDS: ACCU-CHEK COMFORT CURVE STRIP VI SCH ×4 (05:50→17:43)
[2019-09-24 06:09] LABS: Basophils # (auto) 0 10 ^3/uL (0-0.2); Basophils % (auto) 0.4 % (0.0-2.0); Eosinophils # (auto) 0.2 10 ^3/uL (0-0.8); Eosinophils % (auto) 3.4 % (0.0-7.0); Hematocrit 37.6 % (41.0-53.0); Hemoglobin 12.6 g/dL (13.5-17.5); Lymphocytes # (auto) 1.1 10 ^3/uL (0.4-5.4); Lymphocytes % (auto) 19.7 % (10.0-50.0); Mean Corpuscular Hemoglobin 31.5 pg (28.0-32.0); Mean Corpuscular Hgb Conc. 33.6 g/dL (32.0-36.0); Mean Corpuscular Volume 93.7 fL (80.0-100.0); Monocytes # (auto) 0.4 10 ^3/uL (0-1.3); Monocytes % (auto) 6.5 % (0.0-12.0); Neutrophils # (auto) 4.1 10 ^3/uL (1.6-8.6); Nucleated Red Blood Cells % 0.1 %; Platelet Count (auto) 89 10^3/uL (140-450); Red Blood Cells 4.01 10^6/uL (4.5-5.90); Red Cell Distribution Width 16.9 % (11.8-14.3); White Blood Cell 5.8 10^3/uL (4.4-10.8)
[2019-09-24 06:31] LABS: Potassium 3.3 mmol/L (3.5-5.1)
[2019-09-24 06:38] LABS: Albumin 2.2 g/dL (3.4-5.0); BUN/Creatinine Ratio 12.4; Bilirubin, Total 0.5 mg/dL (0.2-1.0); Calcium 7.7 mg/dL (8.5-10.1); Total Protein 5.8 g/dL (6.4-8.2)
[2019-09-24] MEDS: ALBUTEROL SULF 2.5 MG/0.5ML(0.5%) NEB SOLN NEB SCH ×3 (06:41→22:32)
[2019-09-24] MEDS: IPRATROPIUM BROM 0.5 MG/2.5ML INH SOL NEB SCH ×3 (06:41→22:32)
[2019-09-24] MEDS ORDERED: OPTISON 3ml Vial for INJ IV ONE (09:40)
[2019-09-24] MEDS: ENOXAPARIN SOD 100 MG/1 ML SYRINGE SC SCH ×2 (10:00→20:37)
[2019-09-24] MEDS: INSULIN LANTUS (GLARGINE) 1 /0.01ml (100units/ml) SC SCH (10:00)
[2019-09-24] MEDS: AZITHROMYCIN 500MG/ 250ML 250 ML IV SCH (10:51)
[2019-09-24] MEDS ORDERED: POTASSIUM CHL 20MEQ/100ML 100 ML IV SCH (16:45)
[2019-09-24] MEDS ORDERED: POTASSIUM CHL 20MEQ/100ML 100 ML IV ONE (16:46)
[2019-09-25] VITALS (99 sets, daily range): BP systolic 64–147; BP diastolic 34–119
[2019-09-25] MEDS: ACCU-CHEK COMFORT CURVE STRIP VI SCH ×4 (00:11→17:24)
[2019-09-25] MEDS: PIPERACILLIN-TAZOB 3.375GM 100 ML IV SCH ×4 (00:11→17:24)
[2019-09-25] MEDS: MIDAZOLAM DRIP 50 mg/50mL 50 ML IV SCH (04:00)
[2019-09-25] MEDS: fentaNYL Drip 2500mCg/250mlNS 250 ML IV SCH (04:00)
[2019-09-25] MEDS: InsuLIN REG 1unit/0.01ml Soln (100units/ml) SC SCH ×4 (06:00→17:24)
[2019-09-25 06:01] LABS: Basophils # (auto) 0 10 ^3/uL (0-0.2); Eosinophils # (auto) 0.2 10 ^3/uL (0-0.8); Eosinophils % (auto) 4.1 % (0.0-7.0); Hematocrit 35.4 % (41.0-53.0); Hemoglobin 11.8 g/dL (13.5-17.5); Lymphocytes # (auto) 1.2 10 ^3/uL (0.4-5.4); Lymphocytes % (auto) 24.9 % (10.0-50.0); Mean Corpuscular Hemoglobin 31.2 pg (28.0-32.0); Mean Corpuscular Hgb Conc. 33.5 g/dL (32.0-36.0); Mean Corpuscular Volume 93.1 fL (80.0-100.0); Monocytes # (auto) 0.3 10 ^3/uL (0-1.3); Monocytes % (auto) 6.1 % (0.0-12.0); Neutrophils % (auto) 63.9 % (37.0-80.0); Platelet Count (auto) 100 10^3/uL (140-450); Red Cell Distribution Width 16.6 % (11.8-14.3); White Blood Cell 4.7 10^3/uL (4.4-10.8)
[2019-09-25] MEDS: ALBUTEROL SULF 2.5 MG/0.5ML(0.5%) NEB SOLN NEB SCH ×3 (06:14→22:09)
[2019-09-25] MEDS: IPRATROPIUM BROM 0.5 MG/2.5ML INH SOL NEB SCH ×3 (06:14→22:09)
[2019-09-25 06:23] LABS: Calcium 7.9 mg/dL (8.5-10.1); Potassium 3.1 mmol/L (3.5-5.1)
[2019-09-25] MEDS: DexMEDEtomidine 400 MCG in D5W 5% 96 ML IV SCH (08:35)
[2019-09-25] MEDS: AZITHROMYCIN 500MG/ 250ML 250 ML IV SCH (09:46)
[2019-09-25] MEDS: INSULIN LANTUS (GLARGINE) 1 /0.01ml (100units/ml) SC SCH (09:46)
[2019-09-25] MEDS: ENOXAPARIN SOD 100 MG/1 ML SYRINGE SC SCH ×2 (09:47→22:00)
[2019-09-25] MEDS: POTASSIUM CHL 20MEQ/100ML 100 ML IV SCH ×2 (13:13→13:30)
[2019-09-25] MEDS: NOREPINEPHRINE 8 MG/250ML KIT 250 ML IV SCH (14:30)
[2019-09-25] MEDS: SOD CHL 0.45% WITH 20MEQ KCL 1,000 ML IV SCH (16:19)
[2019-09-26] VITALS (54 sets, daily range): BP systolic 69–154; BP diastolic 39–104
[2019-09-26] MEDS: SOD CHL 0.45% WITH 20MEQ KCL 1,000 ML IV SCH (00:50)
[2019-09-26 04:15] LABS: Basophils # (auto) 0 10 ^3/uL (0-0.2); Basophils % (auto) 0.5 % (0.0-2.0); Eosinophils # (auto) 0.2 10 ^3/uL (0-0.8); Eosinophils % (auto) 4.4 % (0.0-7.0); Hematocrit 35.4 % (41.0-53.0); Hemoglobin 11.9 g/dL (13.5-17.5); Lymphocytes # (auto) 1.3 10 ^3/uL (0.4-5.4); Lymphocytes % (auto) 30.1 % (10.0-50.0); Mean Corpuscular Hemoglobin 31.5 pg (28.0-32.0); Mean Corpuscular Hgb Conc. 33.8 g/dL (32.0-36.0); Mean Corpuscular Volume 93.4 fL (80.0-100.0); Monocytes # (auto) 0.3 10 ^3/uL (0-1.3); Monocytes % (auto) 6.8 % (0.0-12.0); Neutrophils # (auto) 2.6 10 ^3/uL (1.6-8.6); Neutrophils % (auto) 58.2 % (37.0-80.0); Platelet Count (auto) 97 10^3/uL (140-450); Red Blood Cells 3.79 10^6/uL (4.5-5.90); Red Cell Distribution Width 16.1 % (11.8-14.3); White Blood Cell 4.4 10^3/uL (4.4-10.8)
[2019-09-26 04:34] LABS: Calcium 8.2 mg/dL (8.5-10.1); Potassium 3.2 mmol/L (3.5-5.1)
[2019-09-26 04:36] LABS: BUN/Creatinine Ratio 9.4
[2019-09-26] MEDS: PIPERACILLIN-TAZOB 3.375GM 100 ML IV SCH ×4 (05:49→17:25)
[2019-09-26] MEDS: InsuLIN REG 1unit/0.01ml Soln (100units/ml) SC SCH ×4 (06:00→17:24)
[2019-09-26] MEDS: IPRATROPIUM BROM 0.5 MG/2.5ML INH SOL NEB SCH ×2 (06:14→14:26)
[2019-09-26] MEDS: ALBUTEROL SULF 2.5 MG/0.5ML(0.5%) NEB SOLN NEB SCH ×2 (06:14→14:26)
[2019-09-26] MEDS: DexMEDEtomidine 400 MCG in D5W 5% 96 ML IV SCH (06:26)
[2019-09-26] MEDS: ACCU-CHEK COMFORT CURVE STRIP VI SCH ×4 (06:27→17:24)
[2019-09-26] MEDS: INSULIN LANTUS (GLARGINE) 1 /0.01ml (100units/ml) SC SCH (10:00)
[2019-09-26] MEDS: ENOXAPARIN SOD 100 MG/1 ML SYRINGE SC SCH (10:00)
[2019-09-26] MEDS: fentaNYL Drip 2500mCg/250mlNS 250 ML IV SCH (11:47)
[2019-09-26] MEDS: POTASSIUM CHL 20MEQ/100ML 100 ML IV PRN ×3 (13:33→14:57)
[2019-09-26] MEDS: NOREPINEPHRINE 8 MG/250ML KIT 250 ML IV SCH (14:30)
[2019-09-26] MEDS: MIDAZOLAM DRIP 50 mg/50mL 50 ML IV SCH (14:56)
[2019-09-26] MEDS ORDERED: POTASSIUM CHL 20MEQ/100ML 100 ML IV SCH (18:00)
[2019-09-26] MEDS ORDERED: DEXTROSE (50%) 50ML SYRG IV PRN (18:30)
[2019-09-27] VITALS (9 sets, daily range): BP systolic 126–160; BP diastolic 85–96
[2019-09-27 04:20] LABS: Basophils # (auto) 0 10 ^3/uL (0-0.2); Basophils % (auto) 0.6 % (0.0-2.0); Eosinophils # (auto) 0.2 10 ^3/uL (0-0.8); Eosinophils % (auto) 2.5 % (0.0-7.0); Hematocrit 40.4 % (41.0-53.0); Hemoglobin 13.7 g/dL (13.5-17.5); Lymphocytes % (auto) 13.3 % (10.0-50.0); Mean Corpuscular Hemoglobin 31.1 pg (28.0-32.0); Mean Corpuscular Hgb Conc. 33.7 g/dL (32.0-36.0); Monocytes # (auto) 0.5 10 ^3/uL (0-1.3); Monocytes % (auto) 5.9 % (0.0-12.0); Neutrophils % (auto) 77.7 % (37.0-80.0); Nucleated Red Blood Cells % 0.1 %; Platelet Count (auto) 128 10^3/uL (140-450); Red Blood Cells 4.39 10^6/uL (4.5-5.90); Red Cell Distribution Width 16.1 % (11.8-14.3); White Blood Cell 7.8 10^3/uL (4.4-10.8)
[2019-09-27 04:26] LABS: BUN/Creatinine Ratio 8.9; Calcium 9.1 mg/dL (8.5-10.1); Potassium 3.1 mmol/L (3.5-5.1)
[2019-09-27] MEDS: PIPERACILLIN-TAZOB 3.375GM 100 ML IV SCH ×4 (05:28→18:42)
[2019-09-27] MEDS: InsuLIN REG 1unit/0.01ml Soln (100units/ml) SC SCH ×6 (05:29→22:00)
[2019-09-27] MEDS: ACCU-CHEK COMFORT CURVE STRIP VI SCH ×5 (05:30→22:00)
[2019-09-27] MEDS: POTASSIUM CHL 20MEQ/100ML 100 ML IV PRN (06:51)
[2019-09-27] MEDS ORDERED: IOHEXOL 350 MG/ML 100ML IJ ONE (12:54)
[2019-09-27] MEDS ORDERED: POTASSIUM CHL 20MEQ/100ML 100 ML IV ONE (16:45)
[2019-09-27] MEDS: ENOXAPARIN SOD 80 MG/0.8ML SYRINGE SC SCH (18:20)
[2019-09-27] MEDS: ALPRAZolam 0.25 MG TAB PO PRN (18:28)
[2019-09-28] MEDS: PIPERACILLIN-TAZOB 3.375GM 100 ML IV SCH ×5 (00:12→21:40)
[2019-09-28] MEDS: ALPRAZolam 0.25 MG TAB PO PRN ×2 (02:08→21:53)
[2019-09-28] MEDS: ENOXAPARIN SOD 80 MG/0.8ML SYRINGE SC SCH ×2 (04:45→16:49)
[2019-09-28 05:00] VITALS: BP 145/90
[2019-09-28] MEDS: ACCU-CHEK COMFORT CURVE STRIP VI SCH ×4 (06:16→21:54)
[2019-09-28] MEDS: InsuLIN REG 1unit/0.01ml Soln (100units/ml) SC SCH ×3 (06:17→21:54)
[2019-09-28 07:29] LABS: Basophils # (auto) 0.1 10 ^3/uL (0-0.2); Basophils % (auto) 0.6 % (0.0-2.0); Eosinophils # (auto) 0.2 10 ^3/uL (0-0.8); Hematocrit 46.7 % (41.0-53.0); Hemoglobin 15.8 g/dL (13.5-17.5); Lymphocytes # (auto) 1.4 10 ^3/uL (0.4-5.4); Mean Corpuscular Hemoglobin 31.2 pg (28.0-32.0); Mean Corpuscular Hgb Conc. 33.8 g/dL (32.0-36.0); Mean Corpuscular Volume 92.3 fL (80.0-100.0); Monocytes # (auto) 0.6 10 ^3/uL (0-1.3); Monocytes % (auto) 6.7 % (0.0-12.0); Neutrophils # (auto) 7.1 10 ^3/uL (1.6-8.6); Neutrophils % (auto) 75.7 % (37.0-80.0); Nucleated Red Blood Cells % 0.2 %; Platelet Count (auto) 174 10^3/uL (140-450); Red Blood Cells 5.06 10^6/uL (4.5-5.90); Red Cell Distribution Width 16.3 % (11.8-14.3); White Blood Cell 9.4 10^3/uL (4.4-10.8)
[2019-09-28 07:55] LABS: BUN/Creatinine Ratio 7.1; Calcium 9.6 mg/dL (8.5-10.1); Potassium 3.2 mmol/L (3.5-5.1)
[2019-09-28 09:00] VITALS: BP 109/85
[2019-09-28 13:00] VITALS: BP 147/83
[2019-09-28 17:00] VITALS: BP 113/68
[2019-09-28] MEDS ORDERED: POTASSIUM EFFERVESENT TAB 25 MEQ PO ONE (17:00)
[2019-09-28] MEDS: POTASSIUM CHL 20MEQ/100ML 100 ML IV SCH ×2 (17:44→19:00)
[2019-09-28 19:08] LABS: INR 1.16 (0.9-1.15); Partial Thromboplastin Time 28.6 sec (23.64-32.05)
[2019-09-28 21:00] VITALS: BP 156/81
[2019-09-28] MEDS: METOPROLOL TARTRATE 25 MG TAB PO SCH (21:41)
[2019-09-29 03:43] VITALS: BP 150/95
[2019-09-29] MEDS: ENOXAPARIN SOD 80 MG/0.8ML SYRINGE SC SCH ×2 (05:32→18:18)
[2019-09-29] MEDS: PIPERACILLIN-TAZOB 3.375GM 100 ML IV SCH ×3 (05:32→18:00)
[2019-09-29 05:54] LABS: Basophils # (auto) 0.1 10 ^3/uL (0-0.2); Basophils % (auto) 0.9 % (0.0-2.0); Eosinophils # (auto) 0.2 10 ^3/uL (0-0.8); Eosinophils % (auto) 2.4 % (0.0-7.0); Hematocrit 46.2 % (41.0-53.0); Hemoglobin 15.4 g/dL (13.5-17.5); Lymphocytes # (auto) 1.8 10 ^3/uL (0.4-5.4); Lymphocytes % (auto) 20.9 % (10.0-50.0); Mean Corpuscular Hemoglobin 30.8 pg (28.0-32.0); Mean Corpuscular Hgb Conc. 33.3 g/dL (32.0-36.0); Mean Corpuscular Volume 92.5 fL (80.0-100.0); Monocytes # (auto) 0.8 10 ^3/uL (0-1.3); Monocytes % (auto) 9.2 % (0.0-12.0); Neutrophils # (auto) 5.8 10 ^3/uL (1.6-8.6); Neutrophils % (auto) 66.6 % (37.0-80.0); Nucleated Red Blood Cells % 0.1 %; Platelet Count (auto) 199 10^3/uL (140-450); Red Blood Cells 4.99 10^6/uL (4.5-5.90); Red Cell Distribution Width 16.6 % (11.8-14.3); White Blood Cell 8.7 10^3/uL (4.4-10.8)
[2019-09-29] MEDS: InsuLIN REG 1unit/0.01ml Soln (100units/ml) SC SCH ×3 (06:00→18:00)
[2019-09-29] MEDS: ACCU-CHEK COMFORT CURVE STRIP VI SCH ×3 (06:00→18:19)
[2019-09-29 06:17] LABS: INR 1.11 (0.9-1.15); Partial Thromboplastin Time 25.7 sec (23.64-32.05)
[2019-09-29 06:21] LABS: Chloride 109 mmol/L (98-107); Potassium 3.5 mmol/L (3.5-5.1); Sodium 140 mmol/L (136-145)
[2019-09-29 06:38] LABS: Blood Urea Nitrogen 9 mg/dL (7-18); Calcium 9.4 mg/dL (8.5-10.1); Carbon Dioxide 20 mmol/L (21-32); GFR African American 98 mL/min; GFR Non-African American 81 mL/min; Glucose 106 mg/dL (74-106)
[2019-09-29 07:22] LABS: Anion Gap 11 (5-15)
[2019-09-29 09:00] VITALS: BP 151/96
[2019-09-29] MEDS: METOPROLOL TARTRATE 25 MG TAB PO SCH ×2 (10:14→22:06)
[2019-09-29] MEDS: LISINOPRIL 5 MG TAB PO SCH (10:14)
[2019-09-29] MEDS: DIPHENOXYLATE W/ATROPINE 2.5 MG TAB PO PRN (10:57)
[2019-09-29 13:00] VITALS: BP 121/88
[2019-09-29] MEDS: ALPRAZolam 0.25 MG TAB PO PRN (13:35)
[2019-09-29] MEDS ORDERED: ACETAMINOPHEN 325 MG TAB PO PRN (14:00)
[2019-09-29 17:00] VITALS: BP 116/75
[2019-09-29] MEDS ORDERED: WARFARIN SODIUM 2.5 MG TAB PO ONE (17:00)
[2019-09-29] MEDS: HYDROcodone-ACET 5/325MG TAB PO PRN (20:12)
[2019-09-29 22:00] VITALS: BP 138/106
[2019-09-29] MEDS ORDERED: POTASSIUM CHL 20 Meq TABLET PO ONE (22:45)
[2019-09-29] MEDS: SOD CHL 0.9%/ KCL 20MEQ 1,000 ML IV SCH ×2 (23:00→23:34)
[2019-09-30] MEDS: HYDROcodone-ACET 5/325MG TAB PO PRN ×4 (01:50→23:45)
[2019-09-30] MEDS: DIPHENOXYLATE W/ATROPINE 2.5 MG TAB PO PRN ×2 (01:50→12:29)
[2019-09-30] MEDS: ENOXAPARIN SOD 80 MG/0.8ML SYRINGE SC SCH ×2 (04:45→16:55)
[2019-09-30 05:39] LABS: Basophils # (auto) 0 10 ^3/uL (0-0.2); Basophils % (auto) 0.6 % (0.0-2.0); Eosinophils # (auto) 0.4 10 ^3/uL (0-0.8); Eosinophils % (auto) 4.8 % (0.0-7.0); Hematocrit 46.2 % (41.0-53.0); Hemoglobin 15.6 g/dL (13.5-17.5); Lymphocytes # (auto) 1.7 10 ^3/uL (0.4-5.4); Lymphocytes % (auto) 21.7 % (10.0-50.0); Mean Corpuscular Hemoglobin 31.3 pg (28.0-32.0); Mean Corpuscular Hgb Conc. 33.9 g/dL (32.0-36.0); Mean Corpuscular Volume 92.4 fL (80.0-100.0); Monocytes # (auto) 0.7 10 ^3/uL (0-1.3); Monocytes % (auto) 8.3 % (0.0-12.0); Neutrophils # (auto) 5.1 10 ^3/uL (1.6-8.6); Neutrophils % (auto) 64.6 % (37.0-80.0); Nucleated Red Blood Cells % 0.1 %; Platelet Count (auto) 224 10^3/uL (140-450); Red Cell Distribution Width 16.6 % (11.8-14.3); White Blood Cell 7.9 10^3/uL (4.4-10.8)
[2019-09-30 05:54] LABS: INR 1.17 (0.9-1.15); Partial Thromboplastin Time 30.1 sec (23.64-32.05)
[2019-09-30 06:00] LABS: BUN/Creatinine Ratio 11.1; Calcium 9.3 mg/dL (8.5-10.1); Potassium 3.5 mmol/L (3.5-5.1)
[2019-09-30] MEDS: InsuLIN REG 1unit/0.01ml Soln (100units/ml) SC SCH ×5 (06:00→23:51)
[2019-09-30] MEDS: PIPERACILLIN-TAZOB 3.375GM 100 ML IV SCH ×5 (06:00→23:51)
[2019-09-30] MEDS: ACCU-CHEK COMFORT CURVE STRIP VI SCH ×5 (06:07→23:51)
[2019-09-30 06:16] VITALS: BP 124/75
[2019-09-30 09:00] VITALS: BP 124/72
[2019-09-30] MEDS: SOD CHL 0.9%/ KCL 20MEQ 1,000 ML IV SCH (09:00)
[2019-09-30] MEDS ORDERED: POTASSIUM CHL 20 Meq TABLET PO SCH (10:00)
[2019-09-30] MEDS: METOPROLOL TARTRATE 25 MG TAB PO SCH ×2 (10:12→21:43)
[2019-09-30] MEDS: LISINOPRIL 5 MG TAB PO SCH (10:12)
[2019-09-30 10:20] LABS: Hepatitis B Surface Antibody Positive
[2019-09-30 11:21] LABS: Hepatitis B Surface Antigen Negative (Negative)
[2019-09-30] MEDS: ALPRAZolam 0.25 MG TAB PO PRN (12:28)
[2019-09-30 13:00] VITALS: BP 132/81
[2019-09-30 16:30] VITALS: BP 140/79
[2019-09-30] MEDS ORDERED: WARFARIN SODIUM 2.5 MG TAB PO ONE (17:00)
[2019-09-30] MEDS: NICOTINE 21MG/24 HR TOPICAL PATCH TD SCH (17:47)
[2019-09-30] MEDS ORDERED: LORazepam 2MG/ML-1ML VIAL IV PRN ×2 (20:30)
[2019-09-30] MEDS ORDERED: CYANOCOBALAMIN (B-12) 1000 MCG/1 ML VIAL IM ONE (20:30)
[2019-09-30 22:00] VITALS: BP 110/78
[2019-10-01] MEDS: ENOXAPARIN SOD 80 MG/0.8ML SYRINGE SC SCH ×2 (04:45→16:52)
[2019-10-01 05:00] VITALS: BP 133/81
[2019-10-01] MEDS: PIPERACILLIN-TAZOB 3.375GM 100 ML IV SCH ×2 (05:48→11:59)
[2019-10-01] MEDS: ACCU-CHEK COMFORT CURVE STRIP VI SCH ×3 (05:49→17:59)
[2019-10-01] MEDS: InsuLIN REG 1unit/0.01ml Soln (100units/ml) SC SCH ×3 (05:49→18:00)
[2019-10-01] MEDS: HYDROcodone-ACET 5/325MG TAB PO PRN ×3 (05:49→18:45)
[2019-10-01 06:00] LABS: Basophils # (auto) 0 10 ^3/uL (0-0.2); Basophils % (auto) 0.6 % (0.0-2.0); Eosinophils # (auto) 0.3 10 ^3/uL (0-0.8); Eosinophils % (auto) 3.8 % (0.0-7.0); Hematocrit 46.7 % (41.0-53.0); Hemoglobin 15.9 g/dL (13.5-17.5); Lymphocytes # (auto) 1.6 10 ^3/uL (0.4-5.4); Lymphocytes % (auto) 21.9 % (10.0-50.0); Mean Corpuscular Hemoglobin 31.7 pg (28.0-32.0); Mean Corpuscular Hgb Conc. 34.1 g/dL (32.0-36.0); Mean Corpuscular Volume 92.9 fL (80.0-100.0); Monocytes # (auto) 0.5 10 ^3/uL (0-1.3); Monocytes % (auto) 6.5 % (0.0-12.0); Neutrophils # (auto) 4.9 10 ^3/uL (1.6-8.6); Neutrophils % (auto) 67.2 % (37.0-80.0); Nucleated Red Blood Cells % 0.2 %; Platelet Count (auto) 251 10^3/uL (140-450); Red Blood Cells 5.03 10^6/uL (4.5-5.90); Red Cell Distribution Width 16.7 % (11.8-14.3); White Blood Cell 7.3 10^3/uL (4.4-10.8)
[2019-10-01 06:09] LABS: INR 1.61 (0.9-1.15); Partial Thromboplastin Time 29.1 sec (23.64-32.05)
[2019-10-01 06:22] LABS: Cholesterol 149 mg/dL (< 200); HDL Cholesterol 29 mg/dL (40-59); LDL Cholesterol 91 mg/dL (< 100); Triglycerides 191 mg/dL (< 150)
[2019-10-01 06:25] LABS: BUN/Creatinine Ratio 14.6; Calcium 9.3 mg/dL (8.5-10.1); Potassium 3.7 mmol/L (3.5-5.1)
[2019-10-01 09:00] VITALS: BP 125/64
[2019-10-01] MEDS: METOPROLOL TARTRATE 25 MG TAB PO SCH ×2 (11:08→22:30)
[2019-10-01] MEDS: CYANOCOBALAMIN 500 MCG TAB PO SCH (11:09)
[2019-10-01] MEDS: LISINOPRIL 5 MG TAB PO SCH (11:11)
[2019-10-01] MEDS: NICOTINE 21MG/24 HR TOPICAL PATCH TD SCH (11:12)
[2019-10-01] MEDS: DIPHENOXYLATE W/ATROPINE 2.5 MG TAB PO PRN (11:59)
[2019-10-01 13:00] VITALS: BP 116/72
[2019-10-01] MEDS ORDERED: WARFARIN SODIUM 5 MG TAB PO ONE (17:00)
[2019-10-01 17:23] VITALS: BP 145/80
[2019-10-01 17:29] VITALS: BP 113/67
[2019-10-01 22:00] VITALS: BP 125/74
[2019-10-02] MEDS: ACCU-CHEK COMFORT CURVE STRIP VI SCH ×5 (01:19→23:07)
[2019-10-02] MEDS: HYDROcodone-ACET 5/325MG TAB PO PRN ×4 (01:20→23:23)
[2019-10-02] MEDS: ENOXAPARIN SOD 80 MG/0.8ML SYRINGE SC SCH ×2 (04:12→16:45)
[2019-10-02] MEDS: InsuLIN REG 1unit/0.01ml Soln (100units/ml) SC SCH ×5 (05:40→23:06)
[2019-10-02 09:00] VITALS: BP 142/77
[2019-10-02 09:48] LABS: Basophils # (auto) 0 10 ^3/uL (0-0.2); Basophils % (auto) 0.7 % (0.0-2.0); Eosinophils # (auto) 0.3 10 ^3/uL (0-0.8); Eosinophils % (auto) 3.9 % (0.0-7.0); Hematocrit 48.7 % (41.0-53.0); Hemoglobin 16.1 g/dL (13.5-17.5); Lymphocytes # (auto) 1.5 10 ^3/uL (0.4-5.4); Lymphocytes % (auto) 19.9 % (10.0-50.0); Mean Corpuscular Hemoglobin 31.1 pg (28.0-32.0); Mean Corpuscular Volume 94.2 fL (80.0-100.0); Monocytes # (auto) 0.4 10 ^3/uL (0-1.3); Monocytes % (auto) 5.5 % (0.0-12.0); Neutrophils # (auto) 5.2 10 ^3/uL (1.6-8.6); Nucleated Red Blood Cells % 0.1 %; Platelet Count (auto) 283 10^3/uL (140-450); Red Blood Cells 5.17 10^6/uL (4.5-5.90); Red Cell Distribution Width 16.9 % (11.8-14.3); White Blood Cell 7.4 10^3/uL (4.4-10.8)
[2019-10-02 10:07] LABS: BUN/Creatinine Ratio 15.3; Calcium 9.1 mg/dL (8.5-10.1); Potassium 3.9 mmol/L (3.5-5.1)
[2019-10-02 10:19] LABS: INR 2.78 (0.9-1.15); Partial Thromboplastin Time 37.7 sec (23.64-32.05)
[2019-10-02] MEDS: CYANOCOBALAMIN 500 MCG TAB PO SCH (10:27)
[2019-10-02] MEDS: LISINOPRIL 5 MG TAB PO SCH (10:27)
[2019-10-02] MEDS: METOPROLOL TARTRATE 25 MG TAB PO SCH ×2 (10:27→23:22)
[2019-10-02] MEDS: DIPHENOXYLATE W/ATROPINE 2.5 MG TAB PO PRN (10:28)
[2019-10-02] MEDS: NICOTINE 21MG/24 HR TOPICAL PATCH TD SCH (10:29)
[2019-10-02] MEDS ORDERED: DIPHENOXYLATE W/ATROPINE 2.5 MG TAB PO PRN (12:15)
[2019-10-02 13:00] VITALS: BP 133/77
[2019-10-02 17:00] VITALS: BP 130/78
[2019-10-02] MEDS ORDERED: WARFARIN SODIUM 5 MG TAB PO ONE (17:00)
[2019-10-02] MEDS ORDERED: WARFARIN SODIUM 2 MG TAB PO ONE (17:00)
[2019-10-02] MEDS: SOD CHL 0.9%/ KCL 20MEQ 1,000 ML IV SCH ×2 (18:30→23:20)
[2019-10-02 22:00] VITALS: BP 95/55
[2019-10-02] MEDS ORDERED: DONEPEZIL HYDROCHLORIDE 5 MG TAB PO SCH ×2 (22:00)
[2019-10-02] MEDS ORDERED: MIRTAZAPINE 30 MG TAB PO PRN (22:15)
[2019-10-02] MEDS ORDERED: HALOPERIDOL LACTATE 5 MG/ML INJ VIAL IM PRN (22:15)
[2019-10-03 05:07] VITALS: BP 139/82
[2019-10-03] MEDS: InsuLIN REG 1unit/0.01ml Soln (100units/ml) SC SCH ×2 (06:00→12:00)
[2019-10-03 06:46] LABS: INR 2.17 (0.9-1.15); Partial Thromboplastin Time 35.9 sec (23.64-32.05)
[2019-10-03] MEDS: ACCU-CHEK COMFORT CURVE STRIP VI SCH ×2 (06:59→12:29)
[2019-10-03 09:12] VITALS: BP 134/78
[2019-10-03] MEDS: HYDROcodone-ACET 5/325MG TAB PO PRN (10:13)
[2019-10-03] MEDS: NICOTINE 21MG/24 HR TOPICAL PATCH TD SCH (10:13)
[2019-10-03] MEDS: LISINOPRIL 5 MG TAB PO SCH (10:15)
[2019-10-03] MEDS: CYANOCOBALAMIN 500 MCG TAB PO SCH (10:15)
[2019-10-03] MEDS: METOPROLOL TARTRATE 25 MG TAB PO SCH (10:16)
[2019-10-03] MEDS ORDERED: WARFARIN SODIUM 5 MG TAB PO ONE (17:00)
== END 2019-10-03 16:11 | DRG 870 ==
LOC: ER 14:31 → TELE 14:32 → EDBD 14:32 → DOU IN ICU 09-22 10:11 → ICU WEST 09-24 22:30 → TELE-EAST 09-27 06:41 → TELE-CENTR 09-29 19:15
PROVIDERS: ADMIT Internal Medicine; ATTEND Hospitalist
PROC: 5A1955Z Respiratory Ventilation, Greater than 96 Consecutive Hours (ICD-10-PCS; principal; 2019-09-21)
PROC: 0BH17EZ Insertion of Endotracheal Airway into Trachea, Via Natural or Artificial Opening (ICD-10-PCS; 2019-09-21)
PROC: 05H533Z Insertion of Infusion Device into Right Subclavian Vein, Percutaneous Approach (ICD-10-PCS; 2019-09-21)
DX: A41.9 Sepsis, unspecified organism (principal); R65.21 Severe sepsis with septic shock; G93.41 Metabolic encephalopathy; J18.9 Pneumonia, unspecified organism; J96.01 Acute respiratory failure with hypoxia; E11.10 Type 2 diabetes mellitus with ketoacidosis without coma; I63.9 Cerebral infarction, unspecified; J81.1 Chronic pulmonary edema; E87.2 Acidosis; I82.412 Acute embolism and thrombosis of left femoral vein; I82.90 Acute embolism and thrombosis of unspecified vein; N17.9 Acute kidney failure, unspecified; E66.9 Obesity, unspecified; Y83.9 Surgical procedure, unspecified as the cause of abnormal reaction of the patient, or of later complication, without mention of misadventure at the time of the procedure; I95.9 Hypotension, unspecified; E11.21 Type 2 diabetes mellitus with diabetic nephropathy; D69.59 Other secondary thrombocytopenia; E87.6 Hypokalemia; I25.10 Atherosclerotic heart disease of native coronary artery without angina pectoris; I11.0 Hypertensive heart disease with heart failure; G47.00 Insomnia, unspecified; F17.210 Nicotine dependence, cigarettes, uncomplicated; I50.9 Heart failure, unspecified; R56.9 Unspecified convulsions; E78.5 Hyperlipidemia, unspecified; Z89.511 Acquired absence of right leg below knee; Z89.9 Acquired absence of limb, unspecified; I25.2 Old myocardial infarction; Z90.49 Acquired absence of other specified parts of digestive tract; Z95.5 Presence of coronary angioplasty implant and graft; E11.649 Type 2 diabetes mellitus with hypoglycemia without coma; Z03.818 Encounter for observation for suspected exposure to other biological agents ruled out
CPT/HCPCS: 31500; 36415; 36569; 36600; 70450; 71045; 71275; 73590; 80048; 80053; 80061; 80307; 80320; 81001; 82010; 82270; 82550; 82607; 82805; 82962; 83036; 83605; 83615; 83735; 83880; 83930; 84100; 84443; 84484; 85025; 85048; 85379; 85610; 85652; 85730; 86706; 86803; 87040; 87070; 87081; 87086; 87205; 87340; 87493; 87804; 87880; 92610; 93005; 93306; 93886; 93970; 94002; 94003; 94640; 95819; 97110; 97163; 97530; A4565; G0378; J1815; J2250; J2543; J3480; J7060; Q9956

== ENCOUNTER → 2019-10-07 | Emergency (ER) | payer OTHER, SELFPAY ==
[2019-10-07 13:45] VITALS: BP 122/51
== END | disposition home or self-care (01) ==
LOC: ER 13:36
DX: M79.606 Pain in leg, unspecified (principal); Z76.5 Malingerer [conscious simulation]; I10 Essential (primary) hypertension; E11.9 Type 2 diabetes mellitus without complications; I25.2 Old myocardial infarction; I25.10 Atherosclerotic heart disease of native coronary artery without angina pectoris; F17.210 Nicotine dependence, cigarettes, uncomplicated; Z90.49 Acquired absence of other specified parts of digestive tract; Z88.8 Allergy status to other drugs, medicaments and biological substances; Z91.030 Bee allergy status

== ENCOUNTER 2019-12-01 23:28 | Emergency (ER) | payer OTHER ==
[~2019-12-01] VITALS: Ht 193 cm; Wt 81.6 kg
[2019-12-02 01:02] VITALS: BP 146/91
== END 2019-12-02 04:08 | disposition left against medical advice (07) ==
LOC: ER 23:30
DX: T87.89 Other complications of amputation stump (principal); E11.9 Type 2 diabetes mellitus without complications; I10 Essential (primary) hypertension; F17.210 Nicotine dependence, cigarettes, uncomplicated; I25.10 Atherosclerotic heart disease of native coronary artery without angina pectoris; I25.2 Old myocardial infarction; Z76.5 Malingerer [conscious simulation]; Z89.511 Acquired absence of right leg below knee; Z89.612 Acquired absence of left leg above knee; Z90.49 Acquired absence of other specified parts of digestive tract; Z88.6 Allergy status to analgesic agent; Y83.8 Other surgical procedures as the cause of abnormal reaction of the patient, or of later complication, without mention of misadventure at the time of the procedure

== ENCOUNTER → 2019-12-18 | Emergency (ER) | payer OTHER ==
[~2019-12-18] VITALS: Ht 193 cm; Wt 81.6 kg
[2019-12-18 20:46] VITALS: BP 114/91
== END | disposition left against medical advice (07) ==
LOC: ER 19:58
DX: R10.9 Unspecified abdominal pain (principal); Z53.21 Procedure and treatment not carried out due to patient leaving prior to being seen by health care provider

== ENCOUNTER → 2019-12-19 | Emergency (ER) | payer OTHER ==
[~2019-12-19] VITALS: Ht 193 cm; Wt 83.9 kg
[2019-12-19 19:28] VITALS: BP 160/91
== END | disposition home or self-care (01) ==
LOC: ER 19:14
DX: M79.662 Pain in left lower leg (principal); Z89.612 Acquired absence of left leg above knee; Z89.511 Acquired absence of right leg below knee; Z76.5 Malingerer [conscious simulation]; I25.10 Atherosclerotic heart disease of native coronary artery without angina pectoris; E11.9 Type 2 diabetes mellitus without complications; I10 Essential (primary) hypertension; I25.2 Old myocardial infarction; F17.210 Nicotine dependence, cigarettes, uncomplicated; Z88.6 Allergy status to analgesic agent; Z88.8 Allergy status to other drugs, medicaments and biological substances

== ENCOUNTER → 2020-01-15 | Emergency (ER) | payer OTHER ==
[2020-01-15 17:22] VITALS: BP 127/84
== END | disposition left against medical advice (07) ==
LOC: EDUNIT# 16:51 → EDBD 17:06 → ER 17:06
DX: M79.661 Pain in right lower leg (principal); Z53.21 Procedure and treatment not carried out due to patient leaving prior to being seen by health care provider